=== PATIENT | male | born 2005 | race African-American/Black ===

== ENCOUNTER 2023-04-11 11:54 | Emergency (ER) | payer OTHER ==
[2023-04-11] MEDS ORDERED: Ibuprofen 800 MG TAB ONE (12:29)
== END 2023-04-11 12:55 | disposition home or self-care (01) ==
LOC: BURERS 11:54
DX: J02.9 Acute pharyngitis, unspecified (principal)
CPT/HCPCS: 87081; 87430; 99283

== ENCOUNTER 2023-05-23 09:20 | Emergency (ER) | payer OTHER ==
[2023-05-23] MEDS ORDERED: Ibuprofen 800 MG TAB ONE (10:19)
== END 2023-05-23 10:25 | disposition home or self-care (01) ==
LOC: BURERS 09:20
DX: S39.012A Strain of muscle, fascia and tendon of lower back, initial encounter (principal); V89.2XXA Person injured in unspecified motor-vehicle accident, traffic, initial encounter
CPT/HCPCS: 71046